=== PATIENT | male | born 1990 | race Caucasian/White ===

== ENCOUNTER 2017-09-16 21:47 | Emergency (ER) | payer MEDICAID, OTHER ==
[2017-09-16 21:59] VITALS: BP 137/109
[2017-09-16] MEDS ORDERED: Benztropine 1 MG Tab PO STA (22:25)
[2017-09-16] MEDS ORDERED: Ondansetron 4 MG/2 ML SDV IVPUSH ONE (22:25)
[2017-09-16] MEDS ORDERED: Sodium Chloride 0.9% 1,000 ML IV ONE (22:25)
[2017-09-16] MEDS ORDERED: Haloperidol Lactate 5 MG/ML SDV IM ONE (22:25)
--- NOTE | 2017-09-16 22:30 | EDM.PDOC ---
ED HPI GENERAL MEDICAL PROBLEM - General Chief Complaint: Headache Stated Complaint: HEADACHE Time Seen by Provider: 09/16/17 22:12 Source of Information: Reports: Patient, Significant Other (Girlfriend) History Limitations: Reports: No Limitations - History of Present Illness INITIAL COMMENTS - FREE TEXT/NARRATIVE: The patient states that he has had a headache felt in his forehead and behind his eyes on and off over the past 2 weeks. He denies photophobia, but states that he has had phonophobia. He has had nausea, but no emesis. He reports blurry vision today only. No neuro symptoms, such as tingling, numbness, or weakness. No prior similar symptoms. The patient states that he has been taking Tylenol and ibuprofen, without relief. He has not sought medical evaluation prior to tonight. No prior imaging study of his head. The patient has a known history of alcohol abuse. He states that he used to drink daily, but is now down to 2-3 days a week. He smells strongly of alcohol, and when asked directly how much she has had today, he replied a six-pack. He also acknowledges that he smokes marijuana often, most recently 2 days ago, and that he continues to abuse Xanax, including taking some today. When asked where he acquired the Xanax, since he does not have a prescription for it, he replied "I just get it". The patient does not have a PCP. Frontal Headache Pain Score (Numeric/FACES): 8 - Related Data Allergies Allergy/AdvReac Type Severity Reaction Status Date / Time No Known Allergies Allergy Verified 09/16/17 21:55 Home Meds: Home Meds Acetaminophen [Tylenol Extra Strength] 1,000 - 1,500 mg PO ONCALL PRN 09/16/17 [ History] Naproxen Sodium [Aleve] 440 mg PO ONCALL PRN 09/16/17 [History] Rizatriptan [Maxalt RADIO DISC JOCKEY] 1 tab PO Q2H PRN #3 tab.dis 09/17/17 [Rx] Past Medical History Psychiatric History: Reports: Anxiety (untreated), Depression (untreated) Social & Family History - Family History Family Medical History: Noncontributory - Tobacco Use Smoking Status *Q: Current Every Day Smoker Years of Tobacco use: 9 Packs/Tins Daily: 1 - Caffeine Use Caffeine Use: Reports: Soda, Other Other Caffeine Use: rare - Alcohol Use Alcohol Use History: Yes Days Per Week of Alcohol Use: 3 Number of Drinks Per Day: 6 Total Drinks Per Week: 18 Date of Last Drink: 09/16/17 Time of Last Drink: 18:30 Alcohol Use Frequency: Binges - Recreational Drug Use Recreational Drug Use: Yes Drug Use in Last 12 Months: Yes Recreational Drug Type: Reports: Marijuana/Hashish (last 09/15/2017), Xanax (last 09/16/2017) - Living Situation & Occupation Living situation: Reports: , Other (with friends) Occupation: Employed (Construction) ED ROS GENERAL - Review of Systems Review Of Systems: ROS reveals no pertinent complaints other than HPI. - Physical Exam Exam: See Below Exam Limited By: No Limitations General Appearance: Alert, WD/WN, No Apparent Distress, Other (Strong smell of alcohol) Eye Exam: Bilateral Eye: Conjunctival Injection Ears: Normal External Exam, Normal Canal, Hearing Grossly Normal, Normal TMs Nose: Normal Inspection, Normal Mucosa, No Blood Throat/Mouth: Normal Inspection, Normal Lips, Normal Teeth, Normal Gums, Normal Oropharynx, Normal Voice, No Airway Compromise Head Exam: Atraumatic, Normocephalic Neck: Normal Inspection, Supple, Non-Tender, Full Range of Motion. No: Lymphadenopathy (L), Lymphadenopathy (R) Respiratory/Chest: No Respiratory Distress, Lungs Clear, Normal Breath Sounds, No Accessory Muscle Use Cardiovascular: Normal Peripheral Pulses, Regular Rate, Rhythm, No Edema, No Gallop, No JVD, No Murmur, No Rub GI/Abdominal: Normal Bowel Sounds, Soft, Non-Tender, No Organomegaly, No Distention, No Abnormal Bruit, No Mass (Male) Exam: Deferred Rectal (Males) Exam: Deferred Neuro Exam (Abbreviated): Alert, Oriented, Normal Cognition, No Motor/Sensory Deficits Back Exam: Normal Inspection, Full Range of Motion, NT Extremities: Normal Inspection, Normal Range of Motion, No Pedal Edema, Normal Capillary Refill Psychiatric: Normal Affect Skin Exam: Warm, Dry, Intact, Normal Color, No Rash Course - Vital Signs Last Recorded V/S: Last Vital Signs Temp 37.3 C 09/16/17 21:56 Pulse 118 H 09/16/17 21:56 Resp 18 09/16/17 21:56 BP 137/109 H 09/16/17 21:56 Pulse Ox 97 09/16/17 21:56 Orthostatic Blood Pressure [ 142/92 Standing] Orthostatic Blood Pressure [ 135/94 Sitting] Orthostatic Blood Pressure [ 140/87 Supine] - Orders/Labs/Meds Orders: Active Orders 24 hr Category Date Time Status Orthostatic Vital Signs [RC] STAT Care 09/16/17 22:25 Active Head wo Cont [CT] Stat Exams 09/16/17 22:24 Taken Meds: Medications Discontinued Medications Generic Name Dose Route Start Last Admin Trade Name Gee PRN Reason Stop Dose Admin Benztropine Mesylate 1 mg 09/16/17 22:25 09/16/17 22:47 Cogentin PO 09/16/17 22:26 1 mg ONETIME STA Administration Haloperidol Lactate 5 mg 09/16/17 22:25 09/16/17 22:48 Haldol IM 09/16/17 22:26 5 mg ONETIME ONE Administration Sodium Chloride 1,000 mls @ 999 mls/hr 09/16/17 22:25 09/16/17 22:47 Normal Saline IV 09/16/17 23:25 999 mls/hr ONETIME ONE Administration Ondansetron HCl 4 mg 09/16/17 22:25 09/16/17 22:48 Zofran IVPUSH 09/16/17 22:26 4 mg ONETIME ONE Administration - Re-Assessments/Exams Free Text/Narrative Re-Assessment/Exam: 09/16/17 22:26 The etiology of the patient's headache is unclear at this time. He has some features of a migraine, including nausea, phonophobia, and visual changes today , although the two-week course and lack of photophobia speaks against this being a migraine. Additionally, the patient is a heavy drinker, admitting that he has had 6 beers today, along with marijuana and Xanax, and these could certainly play a role. I will check orthostatics, and, since the patient has never had an imaging study of his head previously, a CT scan of his head. I will proceed with treating him for migraine with Haldol. If he gets relief, I can prescribe Maxalt. If he does not, then his headache is likely not migrainous , and more likely related to his drug and alcohol abuse. 09/16/17 22:39 The patient is not orthostatic. 09/16/17 23:39 Following Haldol, the patient is reporting that his headache is down from a "10 " to a 4". CT of the head results still pending. 09/17/17 00:13 CT of the head results discontinue. It is read by [facility] as "No acute findings." 09/17/17 00:16 Test results discussed with the patient and his girlfriend. As above, the patient states that he feels substantially better following IM Haldol. This strongly suggests that the patient's headache was migrainous in etiology. I will e-prescribe Maxalt, and refer him to Dr. Conn as a PCP. I also recommended that he seek professional help for his alcohol and drug abuse at [facility]. The patient said he would. Departure - Departure Time of Disposition: 00:17 Disposition: Home, Self-Care 01 Condition: Good Clinical Impression: Migraine headache with aura, Alcohol abuse, Polysubstance abuse - Discharge Information Prescriptions: Rizatriptan [Maxalt RADIO DISC JOCKEY] 1 tab PO Q2H PRN #3 tab.dis PRN Reason: Headache/Pain Instructions: Migraine Headache, [id number], Alcohol Intoxication, Easy-to- Read Referrals: PCP,None [Primary Care Provider] - Marisol Conn [Physician] - Forms: ED Department Discharge Additional Instructions: You were seen in the emergency room for a headache on and off for the past 2 weeks, associated with sensitivity to sound, nausea, and blurry vision today. Workup in the ER included a CT scan of your head, and positional blood pressure checks. Both were normal. You had significant improvement in your symptoms following an injection of Haldol, a medicine that terminates migraines. This strongly suggests that your headache was a migraine headache. A prescription for the anti-migraine medicine Maxalt (rizatriptan) has been sent to the [facility], [facility] [address]. Dissolve 1 tablet in your mouth, like a lozenge, at the earliest onset of migraine symptoms. You may repeat after 2 hours, to a maximum of 3 tablets within a 24- hour period. If this medicine is effective at terminating your migraines, please follow-up with Dr. Conn in the clinic, as a PCP. He can prescribe you more. We STRONGLY recommend that you seek professional help for your drinking and drug abuse at [facility]: [address] [place] [phone] If any other problems, please do not hesitate to return to the ER. - My Orders Last 24 Hours: My Active Orders 09/16/17 22:24 Head wo Cont [CT] Stat 09/16/17 22:25 Orthostatic Vital Signs [RC] STAT - Assessment/Plan Last 24 Hours: My Active Orders 09/16/17 22:24 Head wo Cont [CT] Stat 09/16/17 22:25 Orthostatic Vital Signs [RC] STAT
--- NOTE | 2017-09-17 08:37 | CT ---
Head CT Technique: Multiple axial sections through the brain were obtained. Intravenous contrast was not utilized. Comparison: No prior intracranial imaging. Findings: Ventricles along with basal cisterns and sulci over the convexities appear within normal limits for the patient's age. No abnormal parenchymal densities are seen. No evidence of intracranial hemorrhage. No midline shift or mass effect is seen. Bone window settings were reviewed which show mild mucosal thickening within the ethmoid sinuses. No acute calvarial abnormality is seen. Impression: 1. Sinus findings which are likely incidental. 2. Nothing acute is seen on noncontrast head CT exam. Diagnostic code #2 I agree with preliminary report issued by [facility] ([facility] preliminary report dictated on 09/17/17, 12:19 AM Central Time)
== END 2017-09-17 00:38 | disposition home or self-care (01) ==
LOC: JD.ED 21:47
DX: G43.109 Migraine with aura, not intractable, without status migrainosus (principal); F10.10 Alcohol abuse, uncomplicated; F19.10 Other psychoactive substance abuse, uncomplicated; F17.210 Nicotine dependence, cigarettes, uncomplicated
CPT/HCPCS: 70450; 96361; 96372; 96374; 99284; A9270; J1630; J2405; J7040

== ENCOUNTER 2018-02-22 07:25 | Emergency (ER) | payer SELFPAY ==
[2018-02-22 07:40] VITALS: BP 119/80
[2018-02-22] MEDS ORDERED: Metoclopramide 10 MG/2 ML SDV IVPUSH ONE (08:00)
[2018-02-22] MEDS ORDERED: Dextrose 5%-0.9% NaCl 1,000 ML IV SCH (08:00)
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
--- NOTE | 2018-02-22 09:14 | CR ---
Chest: Portable view of the chest was obtained. Comparison: No prior chest x-ray. Heart size and mediastinum are normal. Lungs are clear. Bony structures are grossly intact. Impression: 1. Nothing acute is seen on portable chest x-ray. Diagnostic code #1
--- NOTE | 2018-02-22 10:15 | US ---
Testicular ultrasound: Multiple real-time images of the testicles were obtained. Comparison: No previous testicular ultrasound. Large hydrocele is seen on the left side. Testicles have a homogeneous ultrasound appearance. Arterial and venous blood flow are seen within the right testicle. Arterial flow is seen within the left testicle although venous blood flow is not definitely appreciated. Measurements: Right testicle: 5.3 x 1.7 x 3.1 cm Left testicle: 5.5 or 2.5 x 3.5 cm Impression: 1. Large left-sided hydrocele. 2. Lack of venous flow within the left testicle with arterial flow being seen. This may relate to the hydrocele. 3. No additional abnormality is seen on testicular ultrasound exam. Diagnostic code #3
[2018-02-22] MEDS ORDERED: Dextrose 5%-Lactated Ringers 1,000 ML IV SCH (10:30)
[2018-02-22] MEDS ORDERED: cefTRIAXone 2 GM in Sodium Chloride 0.9% 100 ML IV ONE (10:33)
--- NOTE | 2018-02-22 11:00 | CT ---
Head CT Technique: Multiple axial sections through the brain were obtained. Intravenous contrast was not utilized. Comparison: Prior head CT study of 09/16/17. Findings: Cortical hemorrhages are seen on the left side within the posterior left frontal and left temporal region. Epidural hematoma is noted posteriorly within the left occipital region. This epidural hematoma measures about 1.0 cm in thickness and shows evidence of air. Multiple hemorrhagic contusions are seen within the right frontal region with surrounding edema. Other parenchymal hemorrhages which appear less prominent than on the right side are seen within the left frontal region also showing surrounding edematous change. Focal parenchymal hemorrhage is seen posteriorly within the left frontal region near the sylvian fissure. Minimal hemorrhagic cortical contusions are seen within the anterior temporal lobes on both sides. No significant midline shift is seen at this time. Bone window settings were reviewed which shows a skull fracture within the posterior left occipital region. No significant displacement is seen intracranially. Fracture extends into the left posterior fossa and left mastoid sinus. Small amount of fluid is seen within left mastoid sinus which likely represents blood from the fracture. Impression: 1. Nondisplaced skull fracture seen within the occipital bone extending into the left mastoid sinus. Blood is seen within the left mastoid sinus. 2. Epidural hematoma is seen adjacent to this fracture within the posterior left occipital lobe. Epidural hematoma measures about 1.0 cm in thickness and contains a small amount of air. 3. Multiple other areas of cortical contusion are seen as noted above most prominent within both frontal regions. Frontal areas shows surrounding edema. 4. No midline shift is seen at this time. Diagnostic code #5
== END 2018-02-22 12:50 ==
LOC: JD.ED 07:25
DX: S06.2X9A Diffuse traumatic brain injury with loss of consciousness of unspecified duration, initial encounter (principal); S06.4X9A Epidural hemorrhage with loss of consciousness of unspecified duration, initial encounter; S02.119A Unspecified fracture of occiput, initial encounter for closed fracture; F17.210 Nicotine dependence, cigarettes, uncomplicated; N43.3 Hydrocele, unspecified; F19.10 Other psychoactive substance abuse, uncomplicated; E87.2 Acidosis; X58.XXXA Exposure to other specified factors, initial encounter
CPT/HCPCS: 36415; 51701; 70450; 71045; 76870; 80053; 80306; 81001; 82009; 82553; 82962; 83605; 83690; 83735; 84484; 85007; 85027; 86140; 87040; 93975; 96361; 96365; 96374; 99285; G0480; J0696; J2765; J7030; J7042; 93010

== ENCOUNTER 2018-12-03 21:38 | Emergency (ER) | payer MEDICAID ==
[2018-12-03 21:49] VITALS: BP 123/80
--- NOTE | 2018-12-04 00:22 | EDM.PDOC ---
ED HPI GENERAL MEDICAL PROBLEM - General Chief Complaint: Genitourinary Problem Stated Complaint: SWOLLEN TESTICLE Time Seen by Provider: 12/03/18 22:18 Source of Information: Reports: Patient History Limitations: Reports: No Limitations - History of Present Illness INITIAL COMMENTS - FREE TEXT/NARRATIVE: Since a 28-year-old male. He has a history of a hydrocele in the left testicle area. Normally it is very hard and has been stable for the last year. He decided to play softball yesterday and as he was playing he noted that his scrotum kept coming out of his shorts and it began to feel kind of funny and when he checked his scrotum was markedly enlarged and distended and instead of being very hard was very squishy. He says is very difficult to get up and walk around because the scrotum is so large it hangs down and pulls and it's painful. His significant other noted that he has got a low-grade fever of 100.8 over the last 24 hours. He comes to the ER for evaluation. He denies any difficulty in urination. Left Scrotum Pain Score (Numeric/FACES): 10 - Related Data Allergies Allergy/AdvReac Type Severity Reaction Status Date / Time No Known Allergies Allergy Verified 09/16/17 21:55 Home Meds: Home Meds Acetaminophen [Tylenol Extra Strength] 500 mg PO ONCALL PRN 09/16/17 [History] Acetaminophen/oxyCODONE [Percocet 325-5 MG] 1 each PO Q6H PRN #15 tab 12/04/18 [ Rx] Doxycycline [Vibramycin] 100 mg PO BID #20 cap 12/04/18 [Rx] Past Medical History Other Musculoskeletal History: broken collarbone bilateral ankles Neurological History: Reports: Concussion Psychiatric History: Reports: Anxiety, Depression - Past Surgical History Male Surgical History: Reports: Other (See Below) Other Male Surgeries/Procedures: left scrotal swelling Social & Family History - Family History Family Medical History: Noncontributory - Tobacco Use Smoking Status *Q: Current Every Day Smoker Years of Tobacco use: 12 Packs/Tins Daily: 0.5 - Caffeine Use Caffeine Use: Reports: Soda Other Caffeine Use: rare - Recreational Drug Use Recreational Drug Use: Yes Recreational Drug Type: Reports: Marijuana/Hashish - Living Situation & Occupation Living situation: Reports: , Other (with friends) Occupation: Employed (Construction) ED ROS GENERAL - Review of Systems Review Of Systems: See Below Constitutional: Reports: Fever. Denies: Chills HEENT: Reports: No Symptoms Respiratory: Reports: No Symptoms Cardiovascular: Reports: No Symptoms Endocrine: Reports: No Symptoms GI/Abdominal: Reports: No Symptoms : Reports: Other (Scrotal enlargement). Denies: Discharge, Urinary Retention Musculoskeletal: Reports: No Symptoms Skin: Reports: No Symptoms Neurological: Reports: No Symptoms Psychiatric: Reports: No Symptoms Hematologic/Lymphatic: Reports: No Symptoms ED EXAM, RENAL/ - Physical Exam Exam: See Below Exam Limited By: No Limitations General Appearance: Alert, WD/WN, Mild Distress Eye Exam: Bilateral Eye: Normal Inspection Ears: Normal External Exam Nose: Normal Inspection Throat/Mouth: Normal Inspection, Normal Lips, Normal Voice, No Airway Compromise Head: Normocephalic Neck: Supple Respiratory/Chest: No Respiratory Distress, Lungs Clear, Chest Non-Tender Cardiovascular: Regular Rate, Rhythm, No Murmur GI/Abdominal: Soft, Other (Mild lower abdominal tenderness but it comes from his scrotum as it pulls down when he stands up) (Male) Exam: Other (Marked swelling of the scrotum to the size of a grapefruit, I cannot really feel the structures well in the scrotum itself, there does not appear to be any bleeding or discoloration such as bruising, no other acute findings) Back Exam: Normal Inspection, Full Range of Motion Extremities: Normal Inspection, Normal Range of Motion Neurological: Alert, Oriented Psychiatric: Normal Affect, Normal Mood Skin Exam: Warm, Dry Course - Vital Signs Last Recorded V/S: Last Vital Signs Temp 100.8 F H 12/03/18 21:47 Pulse 91 12/03/18 21:47 Resp 20 12/03/18 21:47 BP 123/80 12/03/18 21:47 Pulse Ox 100 12/03/18 21:47 - Orders/Labs/Meds Orders: Active Orders 24 hr Category Date Time Status Scrotum and Contents [US] Stat Exams 12/03/18 22:40 Taken Labs: Laboratory Tests 12/03/18 Range/Units 23:09 WBC 10.85 H (4.23-9.07) K/mm3 RBC 5.04 (4.63-6.08) M/mm3 Hgb 14.1 (13.7-17.5) gm/L Hct 42.0 (40.1-51.0) % MCV 83.3 (79.0-92.2) fl MCH 28.0 (25.7-32.2) pg MCHC 33.6 (32.2-35.5) g/dl RDW Std Deviation 39.8 (35.1-43.9) fL Plt Count 194 D (163-337) K/mm3 MPV 10.8 (9.4-12.3) fl Neut % (Auto) 74.0 H (34.0-67.9) % Lymph % (Auto) 16.6 L (21.8-53.1) % [place] % (Auto) 7.9 (5.3-12.2) % Eos % (Auto) 1.2 (0.8-7.0) Baso % (Auto) 0.2 (0.1-1.2) % Neut # (Auto) 8.03 H (1.78-5.38) K/mm3 Lymph # (Auto) 1.80 (1.32-3.57) K/mm3 [place] # (Auto) 0.86 H (0.30-0.82) K/mm3 Eos # (Auto) 0.13 (0.04-0.54) K/mm3 Baso # (Auto) 0.02 (0.01-0.08) K/mm3 Meds: Medications Discontinued Medications Generic Name Dose Route Start Last Admin Trade Name Freq PRN Reason Stop Dose Admin Oxycodone/Acetaminophen 1 tab 12/04/18 00:39 12/04/18 00:46 Percocet 325-5 Mg PO 12/04/18 00:40 1 tab ONETIME ONE Administration - Radiology Interpretation Free Text/Narrative:: Ultrasound showed good blood flow to both testicles with a large adjacent fluid collection in the left scrotal area that is a hydrocele containing layering debris and also a left epididymitis - Re-Assessments/Exams Free Text/Narrative Re-Assessment/Exam: 12/04/18 01:44 I spoke to the patient regarding his ultrasound that the hydrocele is markedly enlarged kidneys got some epididymitis. We will go ahead and give him a Rocephin shot in the ER and placed on some doxycycline as well as something for pain. I did speak to Dr. Saunders at [facility] in [place] and he agrees with the plan and the patient was given a follow-up with Dr. Gramajo next week for recheck. In the meantime the patient is to be at bed rest with up only as needed. Departure - Departure Time of Disposition: 01:46 Disposition: Home, Self-Care 01 Condition: Good Clinical Impression: Left hydrocele, Scrotum swelling, Left epididymitis - Discharge Information *PRESCRIPTION DRUG MONITORING PROGRAM REVIEWED*: No *COPY OF PRESCRIPTION DRUG MONITORING REPORT IN PATIENT CELE: No Prescriptions: Acetaminophen/oxyCODONE [Percocet 325-5 MG] 1 each PO Q6H PRN #15 tab PRN Reason: Pain Doxycycline [Vibramycin] 100 mg PO BID #20 cap Referrals: Antwan Jenkins MD [Primary Care Provider] - Forms: ED Department Discharge, ED Return to Work/School Form Additional Instructions: Home and rest with limited getting up, take the antibiotic faithfully once to get it tomorrow, take the medication as needed for pain, wear tight underwear and not boxers as all help support the scrotum, call Dr. jose Gramajo or Gregory's office on Thursday for an appointment to be seen as soon as possible, if there's marked worsening of your symptoms or a fever greater than 101.5 return to the ER - My Orders Last 24 Hours: My Active Orders 12/03/18 22:40 Scrotum and Contents [US] Stat - Assessment/Plan Last 24 Hours: My Active Orders 12/03/18 22:40 Scrotum and Contents [US] Stat
[2018-12-04] MEDS ORDERED: Acetaminophen/oxyCODONE 325-5 MG Tab PO ONE (00:39)
[2018-12-04] MEDS ORDERED: cefTRIAXone 1 GM Vial ONE (01:51)
[2018-12-04] MEDS ORDERED: cefTRIAXone 1 GM, Lidocaine 1% 2.1 ML IM SCH ×2 (02:00)
--- NOTE | 2018-12-06 08:48 | US ---
Testicular ultrasound: Multiple real-time images of the testicles were obtained. Testicle on the right side is slightly echogenic which may relate to artifact from large left-sided hydrocele. Right testicle appears normal. Both testicles show arterial and venous blood flow. No right-sided hydrocele is seen. Left scrotum appears swollen. Impression: 1. Large left-sided hydrocele. Slightly echogenic left testicle most likely artifact from the hydrocele. 2. Both arterial and venous blood flow are seen within both testicles. 3. Thickening of the left side of the scrotum raising the possibility of cellulitis. No evidence of epididymitis is seen on this study. Diagnostic code #2 Minimal disagree with preliminary report by Stepan (possible cellulitis but no evidence of epididymitis), preliminary report issued at 12/04/18, 2:04 AM Central Time
== END 2018-12-04 02:04 | disposition home or self-care (01) ==
LOC: JD.ED 21:38 → SUPCPDRO 21:38 → JD.ED 12-04 02:04
DX: N43.3 Hydrocele, unspecified (principal); N45.1 Epididymitis; F17.210 Nicotine dependence, cigarettes, uncomplicated; F41.9 Anxiety disorder, unspecified; F32.9 Major depressive disorder, single episode, unspecified; Z79.899 Other long term (current) drug therapy
CPT/HCPCS: 36415; 76870; 85025; 93975; 96372; 99284; A9270; J0696; J2001; 99283